=== PATIENT | male | born 1965 | race Caucasian/White ===

== ENCOUNTER 2024-01-10 07:26 | Day surgery (SDC) | payer BC ==
[2024-01-07 13:28] LABS: Absolute Eosinophils 0.3 K/uL (0-0.5); Absolute Lymphocytes (CBC) 1.5 K/uL (0.7-4.9); Absolute Monocytes 0.6 K/uL (0.1-1.3); Absolute Neutrophil 4.1 K/uL (1.8-8.0); Basophils % 0.6 % (0-1.3); Eosinophils % 3.9 % (0-4.4); Hematocrit 42.9 % (39.6-49.0); Hemoglobin 14.1 g/dL (13.6-17.9); Lymphocytes % 23.7 % (15.3-44.8); MCH 31.5 pg (27.0-35.0); MCHC 32.9 g/dL (32.0-36.0); MCV 95.8 fL (80-100); MPV 8.7 fL (7.6-11.3); Monocytes % 8.9 % (3.3-12.3); Neutrophils % 62.9 % (41.7-73.7); Platelets 216 thou/uL (152-406); RBC Red Blood Cell Count 4.48 M/uL (4.33-5.43); Red Cell Distribution Width 13.5 % (12.1-15.2)
[2024-01-07 13:46] LABS: Anion Gap 8.4 mEq/L (5.0-15.0); Potassium 4.4 mEq/L (3.5-5.1)
[2024-01-10] MEDS ORDERED: Ringers Lactate 1,000 ML IV ONE (07:43)
[2024-01-10] MEDS ORDERED: propofoL 200 MG/20 ML VIAL IV ONE (08:12)
[2024-01-10] MEDS ORDERED: LIDOCAINE 1% MPF 5 ML VIAL ONE (08:13)
[2024-01-10 09:46] VITALS: BP 120/80; TEMP 97.8; O2SAT 98
--- NOTE | 2024-01-11 10:09 | EKG ---
Test Date: 2024-01-07 Test Time: 13:45:17 [employer]argo Broker: ERNESTO MEASUREMENT RESULTS: Intervals: Rate: 79 ND: 180 QRSD: 90 QT: 374 QTc: [address]: P: 56 ND: 180 QRS: 11 T: 25 INTERPRETIVE STATEMENTS: Normal sinus rhythm Possible Left atrial enlargement Cannot rule out Anterior infarct, age undetermined Abnormal ECG No previous ECG available for comparison Electronically Signed On 01-11-24 10:07:01 FILLER IN by Agus Encinas
== END 2024-01-10 09:22 | disposition home or self-care (01) ==
LOC: OR 07:26
PROVIDERS: ATTEND Surgery
PROC: 0DBM8ZX Excision of Descending Colon, Via Natural or Artificial Opening Endoscopic, Diagnostic (ICD-10-PCS; principal; 2024-01-10 08:30)
DX: Z12.11 Encounter for screening for malignant neoplasm of colon (principal); K64.4 Residual hemorrhoidal skin tags; K64.8 Other hemorrhoids; K57.30 Diverticulosis of large intestine without perforation or abscess without bleeding; K63.5 Polyp of colon; D12.4 Benign neoplasm of descending colon
CPT/HCPCS: 45384; 93005; 85025; 80048; 36415; 88305; J2704; J2003; J7120